=== PATIENT | male | born 1990 | race American Indian/Alaskan Native ===

== ENCOUNTER 2017-06-11 13:49 | Observation (INO) | payer SELFPAY ==
--- NOTE | 2017-06-11 14:51 | ED PDOC ---
HPI: Psych/Substance Abuse Time Seen by Provider: 06/11/17 14:01 Chief Complaint (Nursing): Psychiatric Evaluation Chief Complaint (Provider): pysch eval Additional Complaint(s): 27yo M in ED for eval of flight of ideas dissociated talk and paranoia while at homeless assisted who called EMS. states that pt has not been taking his medication. In ER, pt unable to answer questions appropriately, seem preoccupied in thought and has flight of disease. shows paranoia. PT denies SI/ HI. Past Medical History Reviewed: Historical Data, Nursing Documentation, Vital Signs Vital Signs: Last Vital Signs Temp 98.3 F 06/11/17 13:55 Pulse 63 06/11/17 13:55 Resp 16 06/11/17 13:55 BP 110/56 L 06/11/17 13:55 Pulse Ox 99 06/11/17 13:55 - Medical History PMH: No Chronic Diseases - Family History Family History: States: No Known Family Hx - Allergies Allergies/Adverse Reactions: Allergies Allergy/AdvReac Type Severity Reaction Status Date / Time No Known Allergies Allergy Verified 06/11/17 13:55 Review of Systems ROS Statement: Except As Marked, All Systems Reviewed And Found Negative Psych: Positive for: Psychosis. Negative for: Anxiety, Depression, Suicidal ideation, Withdrawal Physical Exam - Reviewed Nursing Documentation Reviewed: Yes Vital Signs Reviewed: Yes - Physical Exam Appears: Positive for: Non-toxic, No Acute Distress Skin: Positive for: Normal Color, Warm, DRY Eye Exam: Positive for: Normal appearance Cardiovascular/Chest: Positive for: Regular Rate, Rhythm Respiratory: Positive for: CNT, Normal Breath Sounds Gastrointestinal/Abdominal: Positive for: Normal Exam, Bowel Sounds, Soft Back: Positive for: Normal Inspection Extremity: Positive for: Normal ROM Neurologic/Psych: Positive for: Alert, director of event marketing II-XII (intact), Oriented, Facial Droop (flight of ideas. dissocaited talk) - Laboratory Results Result Diagrams: 06/11/17 14:57 06/11/17 14:57 - ECG O2 Sat by Pulse Oximetry: 99 - Progress ED Course And Treament: Pt will need crisis eval, crisis eval performed and suggests pt will need [facility] because is is unable to voluntarily sign for admission. . cbc/cmp/utox, BAL, EKG pt is cooperative and calm and placed on 1:1 observation. Medical Decision Making Medical Decision Makin pt pending UA/utox. was given food and fluids. 18:25 Pt is now medically cleared for [facility] [place]. crisis made aware 19:53: PT calm cooperative , pending [facility]. call made to [facility] to estimate ETA possibly before 0:00, but will continue to update MLP. Disposition - Clinical Impression Clinical Impression: Schizophrenia - Patient ED Disposition Is Patient to be Admitted: Transfer of Care - Disposition Disposition Time: 19:54 Condition: STABLE Patient Signed Over To: Adeline Jay ([facility])
[2017-06-11 15:05] LABS: BASO # 0.1 K/uL (0.0-0.2); BASO % 1.1 % (0.0-2.0); EOS % 15.3 % (0.0-4.0); HEMATOCRIT 44.7 % (35.0-51.0); LYMPH # 2.7 K/uL (1.0-4.3); LYMPH % 39.9 % (20.0-40.0); MEAN CELL VOLUME 96.1 fl (80.0-94.0); MEAN CORPUSCULAR HEMOGLOBIN 32.3 pg (27.0-31.0); MEAN CORPUSCULAR HGB CONC 33.6 g/dL (33.0-37.0); MEAN PLATELET VOLUME 8.2 fl (7.2-11.7); MONO # 0.6 K/uL (0.0-0.8); MONO % 9.6 % (0.0-10.0); NEUT # 2.3 K/uL (1.8-7.0); NEUT % 34.1 % (50.0-75.0); NRBC % 0.3 % (0.0-0.0); RED CELL DISTRIBUTION WIDTH 12.9 % (11.5-14.5); WHITE BLOOD COUNT 6.6 K/uL (4.8-10.8)
[2017-06-11 15:12] LABS: ALB/GLOB RATIO 1.6 (1.0-2.1); ALCOHOL SERUM < 10 mg/dl (0-10); ALKALINE PHOSPHATASE 48 U/L (38-126); ALT/SGPT 45 U/L (21-72); AST/SGOT 60 U/L (17-59); BILIRUBIN,TOTAL 1.6 mg/dl (0.2-1.3); BLOOD UREA NITROGEN 13 mg/dl (9-20); CARBON DIOXIDE 24 mmol/L (22-30); CHLORIDE 104 mmol/L (98-107); GFR AFRICAN-AMERICAN > 60; GLUCOSE,RANDOM 70 mg/dL (75-110); POTASSIUM 4.4 MMOL/L (3.6-5.0); SODIUM 139 mmol/l (132-148); TOTAL PROTEIN 7.2 G/DL (6.3-8.2)
[2017-06-11 17:46] LABS: RBC URINE 2 /hpf (0-3); URINE BACTERIA RARE (<OCC); URINE BILIRUBIN NEGATIVE (NEGATIVE); URINE BLOOD NEGATIVE (NEGATIVE); URINE COLOR YELLOW (YELLOW); URINE GLUCOSE (UA) NEG (Normal); URINE KETONE NEGATIVE (NEGATIVE); URINE LEUKOCYTE ESTERASE NEG Leu/uL (Negative); URINE PROTEIN NEGATIVE (NEGATIVE); WBC URINE < 1 /hpf (0-5)
--- NOTE | 2017-06-11 23:05 | ED PDOC ---
- Laboratory Results Result Diagrams: 06/11/17 14:57 06/11/17 14:57 - ECG O2 Sat by Pulse Oximetry: 99 - Radiology X-Ray: Viewed By Me X-Ray Interpretation: No Acute Disease - Progress ED Course And Treament: Case endorsed to racebook writer from Katie ALFRED pending [facility] screen 22:45 Patient evaluated by [facility] screener and committed. Pending available bed. 06/12/17 00:30 Patient sleeping 2:00 Patient sleeping 3:30 Patient sleeping 5:00 Patient sleeping Disposition - Clinical Impression Clinical Impression: Schizophrenia - POA Present On Arrival: None - Disposition Disposition: Transfer of Care Disposition Time: 06:00 Condition: STABLE Patient Signed Over To: Dean Navarrete Handoff Comments: pending available [facility] bed
--- NOTE | 2017-06-12 05:59 | ED PDOC ---
- Laboratory Results Result Diagrams: 06/11/17 14:57 06/11/17 14:57 - ECG O2 Sat by Pulse Oximetry: 99 Medical Decision Making Medical Decision Makin:00: Transfer of staff from NOREEN Hilton, to myself pending [facility] transfer. Patient resting comfortably. 07:00: Transfer of care to Dr. Escobedo pending [facility] transfer. Scribe Attestation: Documented by Berkley Nichols, acting as a scribe for Dean Navarrete MD Provider Scribe Attestation: All medical record entries made by the Scribe were at my direction and personally dictated by me. I have reviewed the chart and agree that the record accurately reflects my personal performance of the history, physical exam, medical decision making, and the department course for this patient. I have also personally directed, reviewed, and agree with the discharge instructions and disposition. Disposition - Clinical Impression Clinical Impression: Schizophrenia - POA Present On Arrival: None - Disposition Disposition: Transfer of Care Disposition Time: 07:00 Condition: STABLE
[2017-06-12 07:35] VITALS: RESP 19
[2017-06-12 09:12] VITALS: BP 110/78; PULSE 78; TEMP 97.6; O2SAT 98
--- NOTE | 2017-06-12 09:19 | CARD ---
APPROVED REPORT EKG Measurement Heart [id number] <Conclusion> Sinus bradycardia Voltage criteria for LVH Early repolarization Otherwise normal ECG
--- NOTE | 2017-06-12 11:24 | RAD ---
HISTORY: clearance COMPARISON: No prior. TECHNIQUE: Chest PA and lateral FINDINGS: LUNGS: No active pulmonary disease. PLEURA: No significant pleural effusion identified. No pneumothorax apparent. CARDIOVASCULAR: Normal. OSSEOUS STRUCTURES: No significant abnormalities. VISUALIZED UPPER ABDOMEN: Normal. OTHER FINDINGS: None. IMPRESSION: No active disease.
== END 2017-06-12 09:14 ==
LOC: H.ER 13:49 → H.EROBSV 15:28
PROVIDERS: ADMIT Emergency Medicine; ATTEND Emergency Medicine
DX: F20.9 Schizophrenia, unspecified (principal); F22 Delusional disorders
CPT/HCPCS: 71020; 80053; 81003; 85025; 93005; 99284; G0378; G0480

== ENCOUNTER 2018-10-15 11:48 | Emergency (ER) | payer MEDICAID, OTHER ==
--- NOTE | 2018-10-15 12:22 | ED PDOC ---
HPI: Psych/Substance Abuse Time Seen by Provider: 10/15/18 12:07 Chief Complaint (Nursing): Psychiatric Evaluation Chief Complaint (Provider): Psychiatric Evaluation History Per: Patient, Other (police) History/Exam Limitations: no limitations Severity: Moderate Associated Symptoms: Other (auditory hallucinations) Involuntary Hold By: Local Law Enforcement Additional Complaint(s): 28 year old male with a past medical history of mental illness (not compliant with medications) in police department custody for outstanding warrants presents to the ED for a psychiatric evaluation. Patient was found in a storage area sleeping. Patient is known to a homeless jail for intermittent stays for the past 5x months since his father kicked him out of his house. As per police, patient was hearing the voices of God talking to him. Patient currently has no complaints and denies having suicidal ideations and homicidal ideations. PMD: None provided. Past Medical History Reviewed: Historical Data, Nursing Documentation, Vital Signs PJ Report Viewed: Yes - Medical History PMH: Schizophrenia - Family History Family History: States: No Known Family Hx - Living Arrangements Living Arrangements: Other (homeless jail) - Allergies Allergies/Adverse Reactions: Allergies Allergy/AdvReac Type Severity Reaction Status Date / Time No Known Allergies Allergy Verified 10/15/18 11:55 Review of Systems ROS Statement: Except As Marked, All Systems Reviewed And Found Negative Psych: Positive for: Other (auditory hallucinations). Negative for: Suicidal ideation ((-) homicidal ideation) Physical Exam - Reviewed Nursing Documentation Reviewed: Yes Vital Signs Reviewed: Yes - Physical Exam Appears: Positive for: Well, Non-toxic, No Acute Distress Head Exam: Positive for: ATRAUMATIC, NORMOCEPHALIC Skin: Positive for: Normal Color, Warm, Dry Cardiovascular/Chest: Positive for: Regular Rate, Rhythm Respiratory: Positive for: Normal Breath Sounds Neurologic/Psych: Positive for: Alert, Oriented (3x) - ECG O2 Sat by Pulse Oximetry: 100 (RA) Pulse Ox Interpretation: Normal - Progress ED Course And Treament: PATIENT SEEN BY CRISIS CLEARED FOR D/C BY DR. MIX DIAGNOSIS SCHIZOPHRENIA. OUTPATIENT REFERRAL INFORMATION GIVEN. DRUG SCREEN POSITIVE FOR CANNABOIDS. Medical Decision Making Medical Decision Makin:07 Initial impression: 28 year old male in the ED for a psychiatric evaluation. Initial plan: * alcohol serum * CMP * drug screen * CBC with diff * urinalysis * reevaluation Scribe Attestation: Documented byEvita Levy, acting as a scribe for Triny Steinberg PA-C. Provider Scribe Attestation: All medical record entries made by the Scribe were at my direction and personally dictated by me. I have reviewed the chart and agree that the record accurately reflects my personal performance of the history, physical exam, medical decision making, and the department course for this patient. I have also personally directed, reviewed, and agree with the discharge instructions and disposition. Disposition - Clinical Impression Clinical Impression: Schizophrenia - Patient ED Disposition Is Patient to be Admitted: No - Disposition Referrals: [facility] [Outside] Disposition: Routine/Home Disposition Time: 13:24 Condition: FAIR Additional Instructions: PATIENT IS MEDICALLY AND PSYCHIATRICALLY CLEARED FOR INCARCERATION Instructions: Schizophrenia (DC)
[2018-10-15 13:31] VITALS: BP 108/62; PULSE 68; RESP 18; TEMP 98.5; O2SAT 100
[2018-10-15 13:46] LABS: BARBITURATES, UR NEGATIVE (NEGATIVE); BENZODIAZEPINES, UR NEGATIVE (NEGATIVE); OPIATES, UR NEGATIVE (NEGATIVE); PHENCYCLIDINE, UR NEGATIVE (NEGATIVE)
== END 2018-10-15 14:19 ==
LOC: MERGE 11:48 → H.ER 11:48
DX: F20.9 Schizophrenia, unspecified (principal)
CPT/HCPCS: 99283; G0480